=== PATIENT | female | born 1985 | race Caucasian/White ===

== ENCOUNTER 2016-07-08 14:06 | Emergency (ER) | payer OTHER, MEDICAID ==
[2016-07-08 14:37] VITALS: RESP 17; TEMP 98.3; BMI 46.0
[2016-07-08 15:49] LABS: RBC URINE 38 /hpf (0-3); URINE BACTERIA OCC (<OCC); URINE BILIRUBIN NEGATIVE (NEGATIVE); URINE BLOOD 1+ (NEGATIVE); URINE COLOR Yellow (YELLOW); URINE GLUCOSE (UA) NORMAL (Normal); URINE KETONE NEGATIVE (NEGATIVE); URINE LEUKOCYTE ESTERASE 3+ Leu/uL (Negative); URINE PROTEIN NEGATIVE (NEGATIVE); URINE UROBILINOGEN NORMAL mg/dL (0.2-1.0); WBC URINE 139 /hpf (0-5)
--- NOTE | 2016-07-08 16:37 | C.PDOC ---
History Of Present Illness 31 y/o female presents to ED with complaint of lower abdominal pain associated with yellowish vaginal discharge for 4 days. Patient also reports pain and itchiness to the vagina. Patient reports she has 1 partner with whom she has unprotected sex. Denies fever, chills, nausea, vomiting, diarrhea. Time Seen by Provider: 07/08/16 15:42 Chief Complaint (Nursing): Female Genitourinary History Per: Patient History/Exam Limitations: no limitations Onset/Duration Of Symptoms: Days Current Symptoms Are (Timing): Still Present Recent travel outside of the [place]: No Past Medical History Reviewed: Historical Data, Nursing Documentation, Vital Signs Vital Signs: Last Vital Signs Temp 98.3 F 07/08/16 14:37 Pulse 75 07/08/16 17:19 Resp 17 07/08/16 17:19 BP 128/75 07/08/16 17:19 Pulse Ox 100 07/18/16 22:12 - Medical History PMH: No Chronic Diseases Surgical History: Cholecystectomy Family History: States: Unknown Family Hx - Social History Hx Tobacco Use: No Hx Alcohol Use: No Hx Substance Use: No - Immunization History Hx Tetanus Toxoid Vaccination: Yes Hx Influenza Vaccination: Yes Hx Pneumococcal Vaccination: Yes Review Of Systems Except As Marked, All Systems Reviewed And Found Negative. Constitutional: Negative for: Fever, Chills Respiratory: Negative for: Cough Gastrointestinal: Positive for: Abdominal Pain. Negative for: Nausea, Vomiting Genitourinary: Positive for: Dysuria, Vaginal Discharge Skin: Negative for: Rash Neurological: Negative for: Headache, Dizziness Physical Exam - Physical Exam Appears: Non-toxic, No Acute Distress Skin: Normal Color, Warm, Dry Head: Atraumatic, Normacephalic Oral Mucosa: Moist Chest: Symmetrical Cardiovascular: Rhythm Regular Respiratory: Normal Breath Sounds, No Rales, No Rhonchi, No Wheezing Gastrointestinal/Abdominal: Soft, No Tenderness, No Guarding, No Rebound Back: Normal Inspection Pelvic: Vaginal Discharge (copious, thick, white discharge in vault), No Cervical Motion Tenderness, No Adnexal Tenderness, Other (cervix not visualized) Extremity: Normal ROM, Capillary Refill (< 2 sec. ) Neurological/Psych: Oriented x3, Normal Speech, Normal Cognition ED Course And Treatment O2 Sat by Pulse Oximetry: 100 (RA) Pulse Ox Interpretation: Normal Medical Decision Making Medical Decision Making: Plan: * UA * GC Chlamydia * Reassess Progress: Treated with diflucan. Given itchiness, no CMT, non tender abdomen, there is low suspicion for STI, will treat for BV and yeast infection and wait for gc/chlamydia results. . 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 Disposition - Disposition Referrals: Meka Stokes [Primary Care Provider] - Disposition: HOME/ ROUTINE Disposition Time: 17:00 Condition: GOOD Additional Instructions: Use Metrogel en ford vagina melly vez al da a la hora de acostarse para la prxima semana. Evite la actividad sexual hasta que esta descarga se aclare. No cherry alcohol hasta que termine con el metrogel; Causa melly interaccin y puede hacerle vomitar. Siga con ford gineclogo segn lo programado. Prescriptions: Metronidazole [Metrogel-Vaginal] 1 ea VG HS #7 gel Instructions: Bacterial Vaginosis (ED), Vulvovaginal Candidiasis (ED) Forms: Gen Discharge Inst Azeri, Work/School/Gym Excuse Print Language: CZECH - Clinical Impression Clinical Impression: Bacterial vaginosis, Candidiasis, vagina - PA / TALENT ACQUISITION ASSOCIATE / Resident Statement MD/DO has reviewed & agrees with the documentation as recorded. - Scribe Statement The provider has reviewed the documentation as recorded by the Charlesibed Mueller All medical record entries made by the Darell were at my direction and personally dictated by me. I have reviewed the chart and agree that the record accurately reflects my personal performance of the history, physical exam, medical decision making, and the department course for this patient. I have also personally directed, reviewed, and agree with the discharge instructions and disposition.
[2016-07-08 17:20] VITALS: BP 128/75; PULSE 75
[2016-07-18 22:12] VITALS: O2SAT 100
== END 2016-07-08 17:39 | disposition home or self-care (01) ==
LOC: SUPCPDRO 14:06 → C.ER 14:06
DX: B37.3 Candidiasis of vulva and vagina (principal)